=== PATIENT | male | born 1970 | race Hispanic/Latino ===

== ENCOUNTER 2018-12-05 11:03 | Inpatient (IN) | payer MEDICAID ==
[2018-12-05 11:13] VITALS: BMI 26.6
[2018-12-05] MEDS ORDERED: Morphine 4 MG/ML VIAL ONE (11:13)
--- NOTE | 2018-12-05 11:15 | C.PDOC ---
History Of Present Illness 48 year old male with a PMHx of hypertension, hypercholesterolemia, and s/p coronary stent placement 1 week ago at [facility] for evaluation of chest pain that began ~1 hour prior to ED arrival. EKG was received prior to patient's arrival and [facility] was called at 11:02 am. Per EMS patient complains of 9/10 chest pain, that began 15 minutes prior to their arrival. Upon arrival they found patient cool and diaphoretic, lying on the ground after shoveling dirt. Patient was given 325 mg aspirin and SL NTG x1 en route. Patient seen and immediately evaluated. Upon arrival he appears diaphoretic but is awake, alert, and answering questions. 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 Time Seen by Provider: 12/05/18 11:04 Chief Complaint (Nursing): Chest Pain History Per: Patient History/Exam Limitations: no limitations Onset/Duration Of Symptoms: Mins Current Symptoms Are (Timing): Still Present Severity: Severe Pain Scale Rating Of: 9 Associated Symptoms: Diaphoresis Nitro Therapy Administered: 1, Per EMS Past Medical History Reviewed: Historical Data, Nursing Documentation, Vital Signs - Medical History PMH: HTN, Hypercholesterolemia Surgical History: Coronary Stent (hx of 4-5, 1 placed at [facility] last week) Family History: States: Unknown Family Hx Review Of Systems Constitutional: Positive for: Sweats. Negative for: Fever Eyes: Negative for: Vision Change Cardiovascular: Positive for: Chest Pain Respiratory: Negative for: Cough, Shortness of Breath, Pleuritic Pain Gastrointestinal: Negative for: Nausea, Vomiting, Abdominal Pain, Diarrhea Musculoskeletal: Negative for: Back Pain Skin: Negative for: Rash Neurological: Negative for: Weakness, Numbness, Headache, Dizziness Physical Exam - Physical Exam Appears: Non-toxic, No Acute Distress Skin: Warm, Diaphoretic Head: Atraumatic, Normacephalic Eye(s): bilateral: Normal Inspection, PERRL, EOMI Oral Mucosa: Moist Neck: Trachea Midline, Supple Chest: Symmetrical, No Tenderness Cardiovascular: Rhythm Regular, No Friction Rub Respiratory: No Accessory Muscle Use, No Rales, No Rhonchi, No Wheezing, Other (+ mild SOB, no retractions, patient speaking in full sentences) Gastrointestinal/Abdominal: Soft, No Tenderness, No Distention Back: No CVA Tenderness, No Vertebral Tenderness Extremity: Bilateral: Atraumatic, Normal Color And Temperature Pulses: Left Dorsalis Pedis: Normal, Right Dorsalis Pedis: Normal Neurological/Psych: Oriented x3, Normal Speech, Normal Cognition ED Course And Treatment - Laboratory Results Result Diagrams: 12/05/18 11:19 12/05/18 11:19 ECG: Interpreted By Me ECG Rhythm: Sinus Rhythm Interpretation Of ECG: STEMI Rate From EC O2 Sat by Pulse Oximetry: 100 Pulse Ox Interpretation: Normal Medical Decision Making Medical Decision Making: Initial EKG from EMS: sinus rhythm at 67 bpm, ST elevations in leads 1 and avL, T wave depressions in leads 3 and avF Impression: STEMI ST-Elevation in the context of recent stent placement can sometimes be normal, however given clinical picture of chest pain, protecting airway but pale moderately diaphoretic will call [facility]. [facility] called at 11:02 11:04 Dr. Guzman, search consultant for [facility], called on patient's arrival with no answer. Orders placed for labs, CXR, EKG. 11:[address] Guzman twice but he is currently unavailable. Pt will require transfer to another facility with carpenter/labor for stent placement. 11:[address] Ulloa, who spoke with Dr. Guzman, he is en route and will take patient to the carpenter/labor here. 11:[address] Guzman, requests starting Heparin bolus and drip as well as giving patient Brilenta 180 mg. pt in NAD Patient admitted and taken to the carpenter/labor. Disposition - Disposition Disposition: HOSPITALIZED Disposition Time: 11:24 Condition: STABLE - POA Present On Arrival: None Core Measure Indicators: [facility] - Clinical Impression Clinical Impression: Chest pain - Scribe Statement The provider has reviewed the documentation as recorded by the Blaise Rosa Provider Attestation: All medical record entries made by the Larryibluis manuel were at my direction and personally dictated by me. I have reviewed the chart and agree that the record accurately reflects my personal performance of the history, physical exam, medical decision making, and the department course for this patient. I have also personally directed, reviewed, and agree with the discharge instructions and d isposition. Decision To Admit - Pt Status Changed To: Hospital Disposition Of: SDS- Endo,OR,Cath,IR - InPatient: Physician Admission Certification: I certify that this patient requires 2 or more midnights of care for the following reason:: cardiac catheterization, stent placement, STEMI - . Bed Request Type: ICU Admitting Physician: Kenneth Guzman Patient Diagnosis: Chest pain
[2018-12-05 11:23] LABS: BASO # 0.1 K/uL (0.0-0.2); BASO % 0.7 % (0.0-2.0); EOS # 0.2 K/uL (0.0-0.7); EOS % 1.8 % (0.0-4.0); HEMOGLOBIN 15.3 g/dL (12.0-18.0); LYMPH # 4.3 K/uL (1.0-4.3); MEAN CELL VOLUME 87.1 fL (80.0-94.0); MEAN CORPUSCULAR HEMOGLOBIN 28.9 pg (27.0-31.0); MEAN CORPUSCULAR HGB CONC 33.2 g/dL (33.0-37.0); MEAN PLATELET VOLUME 8.1 fL (7.2-11.7); MONO % 8.2 % (0.0-10.0); NEUT % 55.3 % (50.0-75.0); NRBC % 0.1 % (0.0-2.0); RBC 5.28 Mil/uL (4.40-5.90); RED CELL DISTRIBUTION WIDTH 14.3 % (11.5-14.5)
[2018-12-05] MEDS ORDERED: Heparin25000 units/250ml 1/2NS 25,000 UNITS/250 ML BAG IV PRN (11:24)
[2018-12-05 11:27] LABS: WHITE BLOOD COUNT 12.7 K/uL (4.8-10.8)
[2018-12-05 11:31] LABS: PROTHROMBIN TIME 11.1 SECONDS (9.7-12.2)
[2018-12-05 11:36] LABS: ALB/GLOB RATIO 1.8 (1.0-2.1); ALBUMIN 5.2 g/dL (3.5-5.0); ALT/SGPT 33 U/L (21-72); AST/SGOT 49 U/L (17-59); BLOOD UREA NITROGEN 18 mg/dL (9-20); GFR NON-AFRICAN AMERICAN 59
[2018-12-05] MEDS ORDERED: Iodixanol 320 MG/ML 200 ML BOTTLE IV ONE (11:41)
[2018-12-05] MEDS ORDERED: Iohexol 350mgl/ml 50 ML ONE (11:41)
[2018-12-05] MEDS ORDERED: Midazolam 2 MG/2 ML VIAL ONE (11:50)
[2018-12-05] MEDS ORDERED: Verapamil 0 ML ONE (11:50)
--- NOTE | 2018-12-05 12:08 | RAD ---
HISTORY: chest pain COMPARISON: None available. TECHNIQUE: Chest, one view. FINDINGS: LUNGS: Tiny bilateral nodular opacities, uncertain significance. No focal consolidation. Please note that chest x-ray has limited sensitivity for the detection of pulmonary masses. PLEURA: No significant pleural effusion identified. No definite pneumothorax . CARDIOVASCULAR: Heart size appears top normal. No significant atherosclerotic calcification present. OSSEOUS STRUCTURES: No acute osseous abnormality identified. VISUALIZED UPPER ABDOMEN: Unremarkable. OTHER FINDINGS: None. IMPRESSION: Tiny bilateral nodular opacities of uncertain significance. Recommend further evaluation CT of the chest.
[2018-12-05] MEDS ORDERED: Amiodarone 150mg/3 ml vial ONE (12:32)
--- NOTE | 2018-12-05 14:03 | CP.PCM.CON ---
<Mainor Grullon - Last Filed: 12/05/18 19:01> History of Present Illness - History of Present Illness History of Present Illness: ICU Consult Note for Dr. Tarango This is a 48 y o male with PMhx CAD with hx 5 prior stents placed (2012, 2013, most recent stent placed last week at [facility] in [facility] by [employer]aling Furnace Operator Dr. 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 Reported chest pain started at 10:45 am this morning, with associated shortness of breath and nausea, and called EMS to bring him to the hospital. [facility] was called. Pt was found to have ST depressions in leads III and avF and ST elevations in I and avL and was subsequently taken to the labor supervisor, where catheterization was performed by Dr. Guzman. Reason for ICU consult was for monitoring post-cath procedure. Cardiac cath demonstrated partial coronary dissection of RCA which was present prior as confirmed by Dr. Pichardo; diagonal artery was occluded as recent stent was placed and T stent was placed during procedure. Pt states he feels better compared to initial chest pain presentation, but reports dull achines in chest currently. Denies sob, n/v/d/c, abd pain, urinary complaints, or other symptoms. PMH: as stated above PSH: right arm surgery, 3 prior cardiac catheterizations, 1 last week, 1 in 2015, and 1 in 2012 with stents placed in each catheterization FMHx: Uncle at 47 from cardiac cause, grandfather from cardiac cause at unknown age SHx: denies smoking and alcohol use Allergies: NKDA Primary Annealing Furnace Operator: Dr. Harry Pichardo PMD: Dr. Delgado Review of Systems - Review of Systems All systems: reviewed and no additional remarkable complaints except - Cardiovascular Cardiovascular: Chest Pain, Dyspnea on Exertion - Respiratory Respiratory: absent: Cough, Dyspnea, Dyspnea on Exertion, Wheezing - Gastrointestinal Gastrointestinal: absent: Abdominal Pain, Constipation, Diarrhea, Nausea, Vomiting Past Patient History - Past Social History Smoking Status: Never Smoked - CARDIAC Hx Hypercholesterolemia: Yes Hx Hypertension: Yes - PSYCHIATRIC Hx Substance Use: No - SURGICAL HISTORY Hx Coronary Stent: Yes (hx of 4-5, 1 placed at [facility] last week) Meds Allergies/Adverse Reactions: Allergies Allergy/AdvReac Type Severity Reaction Status Date / Time No Known Allergies Allergy Verified 12/05/18 11:14 - Medications Medications: Current Medications Heparin Sodium/Sodium Chloride (Heparin 00958 Units/250ml 1/2 Normal Saline) 25,000 units in 250 mls @ 9.253 mls/hr IV .Q24H PRN; Protocol PRN Reason: PROTOCOL Last Admin: 12/05/18 11:24 Dose: 12 units/kg/hr, 9.253 mls/hr Physical Exam - Constitutional Appears: Non-toxic, No Acute Distress - Head Exam Head Exam: ATRAUMATIC, NORMAL INSPECTION - Eye Exam Eye Exam: EOMI, Normal appearance, PERRL - ENT Exam ENT Exam: Mucous Membranes Moist - Respiratory Exam Respiratory Exam: Clear to Auscultation Bilateral, NORMAL BREATHING PATTERN. absent: Rales, Rhonchi, Wheezes - Cardiovascular Exam Cardiovascular Exam: REGULAR RHYTHM, +S1, +S2. absent: Gallop, Rubs, Systolic Murmur - GI/Abdominal Exam GI & Abdominal Exam: Normal Bowel Sounds, Soft. absent: Distended, Organomegaly, Tenderness - Extremities Exam Extremities exam: Positive for: full ROM, normal capillary refill, normal inspection, pedal pulses present - Neurological Exam Neurological exam: Alert, CN II-XII Intact, Oriented x3 - Psychiatric Exam Psychiatric exam: Normal Affect, Normal Mood - Skin Skin Exam: Dry, Intact, Warm Additional comments: Site of catheter insertion in R groin c/d/i Results - Vital Signs Recent Vital Signs: Last Vital Signs Temp 97.8 F 12/05/18 11:08 Pulse 89 12/05/18 11:08 Resp 26 H 12/05/18 11:08 BP 151/92 H 12/05/18 11:08 Pulse Ox 100 12/05/18 11:58 - Labs Result Diagrams: 12/05/18 17:33 12/05/18 17:33 Labs: Laboratory Results - last 24 hr 12/05/18 12/05/18 12/05/18 11:16 11:19 11:19 WBC 12.7 H RBC 5.28 Hgb 15.3 Hct 46.0 MCV 87.1 MCH 28.9 MCHC 33.2 RDW 14.3 Plt Count 485 H MPV 8.1 Neut % (Auto) 55.3 Lymph % (Auto) 34.0 [place] % (Auto) 8.2 Eos % (Auto) 1.8 Baso % (Auto) 0.7 Neut # (Auto) 7.0 Lymph # (Auto) 4.3 [place] # (Auto) 1.0 H Eos # (Auto) 0.2 Baso # (Auto) 0.1 PT 11.1 INR 1.0 APTT 32 Sodium Potassium Chloride Carbon Dioxide Anion Gap BUN Creatinine Est GFR ( Amer) Est GFR (Non-Af Amer) POC Glucose (mg/dL) 118 H Random Glucose Calcium Total Bilirubin AST ALT Alkaline Phosphatase Troponin I Total Protein Albumin Globulin Albumin/Globulin Ratio Blood Type Antibody Screen 12/05/18 12/05/18 12/05/18 11:19 11:19 11:20 WBC RBC Hgb Hct MCV MCH MCHC RDW Plt Count MPV Neut % (Auto) Lymph % (Auto) [place] % (Auto) Eos % (Auto) Baso % (Auto) Neut # (Auto) Lymph # (Auto) [place] # (Auto) Eos # (Auto) Baso # (Auto) PT INR APTT Sodium 139 Potassium 3.7 Chloride 100 Carbon Dioxide 26 Anion Gap 17 BUN 18 Creatinine 1.3 Est GFR ( Amer) > 60 Est GFR (Non-Af Amer) 59 POC Glucose (mg/dL) Random Glucose 116 H Calcium 10.0 Total Bilirubin 0.4 AST 49 ALT 33 Alkaline Phosphatase 128 H Troponin I 0.0250 Total Protein 8.1 Albumin 5.2 H Globulin 3.0 Albumin/Globulin Ratio 1.8 Blood Type O POSITIVE Antibody Screen Negative Assessment & Plan - Assessment and Plan (Free Text) Assessment: This is a 48 y o male with PMhx CAD with hx 5 prior stents placed (2012, 2013, most recent stent placed last week at [facility] in [facility] by Ca rdiologist Dr. 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 Reason for ICU consult was for monitoring post-cath procedure. Plan: Neuro: -AAOx3, no gross deficits on exam -Will cont to monitor Cardio: -S/p [facility] -EKG: ST depressions in III and aVF and ST elevations in I and aVL -S/p Cardiac catheterization by Dr. Guzman, showed partial coronary dissection of RCA which was present prior as confirmed by Dr. Pichardo; diagonal artery was occluded as recent stent was placed and T stent was placed -Cardiology consulted, Dr. Guzman, recs appreciated -S/p heparin drip -C/w Briilinta -Started beta-elvis, statin therapy, ASA -Pt had episode of v-tach and associated palpitations in unit for several seconds which resolved on own without intervention, stat EKG done demonstrated no acute changes, trop elevated to 70 from admission, cont to trend ROMIs -Amiodarone drip started Pulm: -CXR demonstrated b/l nodular opacities of unknown significance, recommend CT chest -Saturating well on NC, cont to monitor GI: -HHD -Protonix -No acute issues at this time, cont to monitor -C/w IVF hydration post-procedure Heme: -H/H 13.8/42.7, stable, cont to monitor -Leukocytosis on admission, may be reactive 2/2 STEMI, cont to trend -Afebrile PPX: -Heparin, Protonix Pt seen, examined with, and plan discussed with Dr. Tarango, attending physician. Mainor Grullon DO PGY-1, Senior Mechanical Designer Pager #[phone] <Brendan Tarango - Last Filed: 12/11/18 23:10> Results - Vital Signs Recent Vital Signs: Last Vital Signs Temp 97.7 F 12/10/18 16:00 Pulse 73 12/10/18 17:30 Resp 18 12/10/18 16:00 BP 94/59 L 12/10/18 16:00 Pulse Ox 97 12/10/18 16:00 - Labs Result Diagrams: 12/10/18 07:26 12/10/18 07:26 Attending/Attestation - Attestation I have personally seen and examined this patient.: Yes I have fully participated in the care of the patient.: Yes I have reviewed all pertinent clinical information: Yes Notes (Text): 12/05/18 Today: Monday, December 05, 2018 The Patient was seen and examined at the bedside, Medical records reviewed, and management issues were discussed and formulated with the house staff. I have reviewed all the relevant clinical, laboratory, hemodynamic, radiographic data and medications Events reviewed Pain issues, skin care, head of the bed elevation, glycemic control were addressed. Agree with above resident's assessment and treatment plans of care as transcribed in Dr. Grullon's note.
[2018-12-05] MEDS: Sodium Chloride 0.9% 1,000 ML IV SCH (16:00)
[2018-12-05] MEDS: Pantoprazole 40 mg EC Tab PO SCH (16:28)
--- NOTE | 2018-12-05 16:50 | CP.PCM.CON ---
History of Present Illness - History of Present Illness History of Present Illness: Ailyn Verde, PGY-1, Cardiology Consult Note for Dr. Guzman 48 year old male with past medical history of CAD with 3 prior heart cath eterizations last week, 3 years ago, and 6 years ago presents with sharp chest pain which gradually increased after patient was shoveling dirt today for 5 minutes. Patient reported chest pain starting around 10:45 AM, shortness of breath and nausea was brought to the hospital by EMS. EKG was read at 11:02 and code heart was called. Patient was found to have ST depressions in III and aVF and ST elevations in I and aVL and was subsequently taken to the laborer stores where cardiac catheterization was performed by Dr. Guzman. Patient denied diaphoresis, jaw pain, or left arm pain. Patient's pain was similar to prior episodes of myocardial infarction. PMH: as stated above PSH: right arm surgery, 3 prior cardiac catheterizations, 1 last week, 1 in 2015, and 1 in 2012 with stents placed in each catheterization FMHx: Uncle at 47 from cardiac cause, grandfather from cardiac cause at unknown age SHx: denies smoking and alcohol use Allergies: NKDA Evaporator Supervisor: Dr. Harry Pichardo Review of Systems - Review of Systems Review of Systems: except as stated in HPI Past Patient History - Past Medical History & Family History Past Medical History?: Yes - Past Social History Smoking Status: Never Smoked - CARDIAC Hx Heart Attack: Yes Hx Hypercholesterolemia: Yes Hx Hypertension: Yes - PULMONARY Hx Respiratory Disorders: No - NEUROLOGICAL Hx Neurological Disorder: No - HEENT Hx HEENT Problems: No - RENAL Hx Chronic Kidney Disease: No - ENDOCRINE/METABOLIC Hx Endocrine Disorders: No - INTEGUMENTARY Hx Dermatological Problems: No - MUSCULOSKELETAL/RHEUMATOLOGICAL Hx Musculoskeletal Disorders: No Hx Falls: No - GASTROINTESTINAL Hx Gastrointestinal Disorders: No - GENITOURINARY/GYNECOLOGICAL Hx Genitourinary Disorders: No - PSYCHIATRIC Hx Psychophysiologic Disorder: No Hx Substance Use: No - SURGICAL HISTORY Hx Surgeries: Yes Hx Coronary Stent: Yes (hx of 4-5, 1 placed at [facility] last week) - ANESTHESIA Hx Anesthesia: Yes Hx Anesthesia Reactions: No Meds Allergies/Adverse Reactions: Allergies Allergy/AdvReac Type Severity Reaction Status Date / Time No Known Allergies Allergy Verified 12/05/18 11:14 - Medications Medications: Current Medications Aspirin (Aspirin Chewable) 81 mg PO DAILY REPLACED BY [facility] Heparin Sodium (Porcine) (Heparin) 5,000 units SC Q8 REPLACED BY [facility] Sodium Chloride (Sodium Chloride 0.9%) 1,000 mls @ 100 mls/hr IV .Q10H REPLACED BY [facility] Last Admin: 12/05/18 16:00 Dose: 100 mls/hr Metoprolol Tartrate (Lopressor) 25 mg PO DAILY REPLACED BY [facility] Last Admin: 12/05/18 16:27 Dose: 25 mg Pantoprazole Sodium (Protonix Ec Tab) 40 mg PO DAILY REPLACED BY [facility] Last Admin: 12/05/18 16:28 Dose: 40 mg Rosuvastatin Calcium (Crestor) 20 mg PO HS REPLACED BY [facility] Ticagrelor (Brilinta) 90 mg PO BID REPLACED BY [facility] Physical Exam - Constitutional Appears: Well, Non-toxic, No Acute Distress - Head Exam Head Exam: ATRAUMATIC, NORMAL INSPECTION, NORMOCEPHALIC - Eye Exam Eye Exam: EOMI, PERRL - ENT Exam ENT Exam: Mucous Membranes Moist - Respiratory Exam Respiratory Exam: Clear to Auscultation Bilateral, NORMAL BREATHING PATTERN - Cardiovascular Exam Cardiovascular Exam: Tachycardia, REGULAR RHYTHM - GI/Abdominal Exam GI & Abdominal Exam: Normal Bowel Sounds, Soft. absent: Tenderness - Extremities Exam Extremities exam: Positive for: full ROM - Neurological Exam Neurological exam: Alert, CN II-XII Intact, Oriented x3 - Psychiatric Exam Psychiatric exam: Anxious - Skin Skin Exam: Dry, Intact, Normal Color Results - Vital Signs Recent Vital Signs: Last Vital Signs Temp 97.8 F 12/05/18 11:08 Pulse 68 12/05/18 15:30 Resp 11 L 12/05/18 15:30 BP 126/79 12/05/18 16:27 Pulse Ox 99 12/05/18 15:30 - Labs Result Diagrams: 12/05/18 11:19 12/05/18 11:19 Labs: Laboratory Results - last 24 hr 12/05/18 12/05/18 12/05/18 11:16 11:19 11:19 WBC 12.7 H RBC 5.28 Hgb 15.3 Hct 46.0 MCV 87.1 MCH 28.9 MCHC 33.2 RDW 14.3 Plt Count 485 H MPV 8.1 Neut % (Auto) 55.3 Lymph % (Auto) 34.0 [place] % (Auto) 8.2 Eos % (Auto) 1.8 Baso % (Auto) 0.7 Neut # (Auto) 7.0 Lymph # (Auto) 4.3 [place] # (Auto) 1.0 H Eos # (Auto) 0.2 Baso # (Auto) 0.1 PT 11.1 INR 1.0 APTT 32 Sodium Potassium Chloride Carbon Dioxide Anion Gap BUN Creatinine Est GFR ( Amer) Est GFR (Non-Af Amer) POC Glucose (mg/dL) 118 H Random Glucose Calcium Total Bilirubin AST ALT Alkaline Phosphatase Troponin I Total Protein Albumin Globulin Albumin/Globulin Ratio Blood Type Antibody Screen 12/05/18 12/05/18 12/05/18 11:19 11:19 11:20 WBC RBC Hgb Hct MCV MCH MCHC RDW Plt Count MPV Neut % (Auto) Lymph % (Auto) [place] % (Auto) Eos % (Auto) Baso % (Auto) Neut # (Auto) Lymph # (Auto) [place] # (Auto) Eos # (Auto) Baso # (Auto) PT INR APTT Sodium 139 Potassium 3.7 Chloride 100 Carbon Dioxide 26 Anion Gap 17 BUN 18 Creatinine 1.3 Est GFR ( Amer) > 60 Est GFR (Non-Af Amer) 59 POC Glucose (mg/dL) Random Glucose 116 H Calcium 10.0 Total Bilirubin 0.4 AST 49 ALT 33 Alkaline Phosphatase 128 H Troponin I 0.0250 Total Protein 8.1 Albumin 5.2 H Globulin 3.0 Albumin/Globulin Ratio 1.8 Blood Type O POSITIVE Antibody Screen Negative Assessment & Plan - Assessment and Plan (Free Text) Assessment: CAD Family history of DE Plan: CAD Family history of DE Cardiac catheterization showed partial coronary dissection of RCA which was present prior as confirmed by Dr. Pichardo; diagonal artery was occluded as recent stent was placed and T stent was placed Medications: aspirin brilinta rosuvastatin lopressor - Date & Time Date: 12/05/18 Time: 16:51
[2018-12-05 17:36] LABS: BASO # 0.1 K/uL (0.0-0.2); BASO % 0.6 % (0.0-2.0); EOS % 0.1 % (0.0-4.0); HEMOGLOBIN 13.8 g/dL (12.0-18.0); LYMPH # 2.2 K/uL (1.0-4.3); MEAN CELL VOLUME 86.3 fL (80.0-94.0); MEAN CORPUSCULAR HEMOGLOBIN 27.8 pg (27.0-31.0); MEAN CORPUSCULAR HGB CONC 32.2 g/dL (33.0-37.0); MEAN PLATELET VOLUME 7.8 fL (7.2-11.7); MONO # 1.1 K/uL (0.0-0.8); MONO % 6.8 % (0.0-10.0); NEUT # 13.3 K/uL (1.8-7.0); NEUT % 79.5 % (50.0-75.0); NRBC % 0.1 % (0.0-2.0); RBC 4.95 Mil/uL (4.40-5.90); WHITE BLOOD COUNT 16.7 K/uL (4.8-10.8)
[2018-12-05 17:51] LABS: ALB/GLOB RATIO 1.7 (1.0-2.1); ALBUMIN 4.6 g/dL (3.5-5.0); ALT/SGPT 58 U/L (21-72); AST/SGOT 268 U/L (17-59); BLOOD UREA NITROGEN 13 mg/dL (9-20); CALCIUM 9.2 mg/dl (8.6-10.4); GFR NON-AFRICAN AMERICAN > 60
--- NOTE | 2018-12-05 19:28 | CARD ---
APPROVED REPORT Date of service: 12/05/2018 EKG Measurement Heart [id number] [id number] <Conclusion> Normal sinus rhythm Low voltage QRS Cannot rule out Anteroseptal infarct, age undetermined Lateral injury pattern ACUTE MT / STEMI Abnormal ECG
[2018-12-05 21:12] LABS: ALB/GLOB RATIO 1.7 (1.0-2.1); ALBUMIN 4.9 g/dL (3.5-5.0); BLOOD UREA NITROGEN 13 mg/dL (9-20); CALCIUM 9.4 mg/dl (8.6-10.4); GFR NON-AFRICAN AMERICAN > 60
[2018-12-05 21:15] LABS: ALT/SGPT 60 U/L (21-72); AST/SGOT 313 U/L (17-59)
[2018-12-05 22:55] LABS: BARBITURATES, UR NEGATIVE (NEGATIVE); PHENCYCLIDINE, UR NEGATIVE (NEGATIVE)
[2018-12-05 22:57] LABS: BENZODIAZEPINES, UR POSITIVE (NEGATIVE); OPIATES, UR POSITIVE (NEGATIVE)
[2018-12-06] MEDS: Sodium Chloride 0.9% 1,000 ML IV SCH (01:25)
[2018-12-06 02:04] LABS: CK-MB 75.4 ng/mL (0.0-3.38); TROPONIN I 43.1 ng/mL (0.00-0.120)
--- NOTE | 2018-12-06 02:10 | CARDCATH ---
PROCEDURE DATE: 12/05/2018 INDICATIONS: Mr. Abdirashid Carter is a 48-year-old male with past medical history significant for CAD, status post multiple angioplasties and stenting, who recently had undergone a balloon angioplasty of the diagonal in-stent restenosis done on 11/26/[address] Harry Pichardo who is his primary hospital medical assistant. The patient was at work who was shoveling some gravel dirt when he started to complain of substernal chest pressure. EMS was called and the patient was brought to the emergency room at [facility]. Initial EKG noted ST elevations in the high lateral leads. He was brought to the laboratory cureman for evaluation and treatment of acute ST elevation LA. PROCEDURE PERFORMED: Emergent left heart catheterization with selective left and right coronary angiogram, left ventriculogram, 6-Taiwanese right femoral arterial access, percutaneous transluminal coronary angioplasty and stenting of 100% occluded diagonal branch, deployment of 2.25 x 15 mm Mesa drug-eluting stent, lesion reduction from 100% down to 0% KENDAL-3 flow, percutaneous transluminal coronary angioplasty and stenting of mid left anterior descending 50% stenosis. deployment of 3.0 x 18 Mesa drug-eluting stent, lesion reduction from 50% down to 0% KENDAL-3 flow, left anterior descending stenting and diagonal stent was done for modified crush T-stenting technique for patency of the left anterior descending and diagonal. TECHNIQUES OF PROCEDURE: After obtaining informed consent, the patient was brought to the cardiac cath suite in post-absorptive and non-sedated state. The patient was prepped and draped in the usual sterile fashion; 2% lidocaine was used for infiltration of anesthesia. Using modified Seldinger technique, a 6-Taiwanese sheath was introduced into the right femoral artery, subsequently over J-wire. JR4 and XB 3.5 guiding catheter were used in the right and left coronary systems. Angiograms were obtained in different orthogonal views. RCA is small, nondominant, occluded with patent conus branch. Distal RCA had some collateral flow feeding from the distal circ. LEFT CORONARY SYSTEM: The left main large-sized vessel bifurcates into the left anterior descending and left circumflex coronary artery. Left circumflex runs in the AV groove, has stents in the mid segment which are patent, gives off two small obtuse marginal branches. LPDA is patent with mild nonobstructive disease, a small obtuse marginal 1 less than 1 mm vessel has approximately 80% stenosis. Left anterior descending is a large-sized vessel, gives off diagonal branch which has a stent in the proximal segment which is 100% occluded. LAD has a mid stent which is patent with nonobstructive 80% stenosis. TECHNIQUES OF INTERVENTION: After reviewing the above angiographic findings, we decided to proceed with intervention of the diagonal. Case was reviewed by Dr. Pichardo who described angiogram. At this point, a whisper wire was used to cross the lesion. Lesion was pre-dilated with a 1.5 x 2 balloon, and subsequently the ostium of the diagonal which was the uncovered part of the stent had an interval tear which potentially could have caused the stent thrombosis at this point. A 2.25 x 18 stent was deployed extending into the LAD. Subsequently, the LAD was ballooned to crush the stent in the diagonal at this time. The LAD vessel was stented with 3 x 18 and the wires were exchanged from the LAD into the diagonal and diagonal into the LAD and subsequently kissing balloon angioplasties of both LAD and diagonal were done. Final angiogram done showed regeneration down to 0% KENDAL 3 flow. IMPRESSION: Successful angioplasty and stenting of occluded diagonal branch. Successful T-stenting for preservation of the left anterior descending architecture with modified crush technique with a 3 x 18 in LAD and a 2.25 x 18 in the diagonal. RECOMMENDATIONS: Continue the patient with antiplatelet therapy. ICU observation for 24 hours. Echocardiogram. The patient can be discharged home tomorrow and follow up with his hospital medical assistant Dr. Harry Pichardo. Kennteh Guzman MD cc: Harry Pichardo MD
[2018-12-06 06:29] LABS: BASO % 0.2 % (0.0-2.0); HEMOGLOBIN 14.2 g/dL (12.0-18.0); LYMPH # 0.7 K/uL (1.0-4.3); LYMPH % 3.9 % (20.0-40.0); MEAN CELL VOLUME 86.8 fL (80.0-94.0); MEAN CORPUSCULAR HEMOGLOBIN 28.4 pg (27.0-31.0); MEAN CORPUSCULAR HGB CONC 32.7 g/dL (33.0-37.0); MEAN PLATELET VOLUME 8.6 fL (7.2-11.7); MONO # 0.9 K/uL (0.0-0.8); NEUT # 15.6 K/uL (1.8-7.0); NEUT % 90.9 % (50.0-75.0); PLATELET COUNT 392 K/uL (130-400); RBC 4.99 Mil/uL (4.40-5.90); RED CELL DISTRIBUTION WIDTH 14.3 % (11.5-14.5); WHITE BLOOD COUNT 17.2 K/uL (4.8-10.8)
[2018-12-06 06:46] LABS: ALB/GLOB RATIO 1.8 (1.0-2.1); ALBUMIN 4.6 g/dL (3.5-5.0); ALT/SGPT 51 U/L (21-72); AST/SGOT 241 U/L (17-59); BLOOD UREA NITROGEN 12 mg/dL (9-20); CALCIUM 9.1 mg/dl (8.6-10.4); GFR NON-AFRICAN AMERICAN > 60
[2018-12-06 08:11] LABS: LYMPHOCYTE 4 % (20-40); MONOCYTE 9 % (0-10); NEUTROPHIL 87 % (50-75); TOTAL CELLS COUNTED 100
[2018-12-06 08:12] LABS: PLATELET ESTIMATE NORMAL (NORMAL)
--- NOTE | 2018-12-06 08:37 | CP.PCM.PN ---
Subjective - Date & Time of Evaluation Date of Evaluation: 12/06/18 Time of Evaluation: 08:35 - Subjective Subjective: Ailyn Verde, PGY-1, Cardiology Progress Note for Dr. Guzman Patient was seen and evaluated at bedside. Patient had no acute overnight events except for nausea. Patient no longer feels nausea, reports that chest pain and shortness of breath have now resolved. Objective - Vital Signs/Intake and Output Vital Signs (last 24 hours): Temp Pulse Resp BP Pulse Ox 98.6 F 86 14 99/64 L 96 12/06/18 08:00 12/06/18 08:00 12/06/18 08:00 12/06/18 07:28 12/06/18 08:00 Intake and Output: 12/06/18 12/06/18 06:59 18:59 Intake Total 1783.4 233.4 Output Total 850 0 Balance 933.4 233.4 - Medications Medications: Current Medications Aspirin (Aspirin Chewable) 81 mg PO DAILY [facility] Heparin Sodium (Porcine) (Heparin) 5,000 units SC Q8 [facility] Last Admin: 12/06/18 05:54 Dose: 5,000 units Sodium Chloride (Sodium Chloride 0.9%) 1,000 mls @ 100 mls/hr IV .Q10H [facility] Last Admin: 12/06/18 01:25 Dose: 100 mls/hr Amiodarone HCl 900 mg/ (Dextrose) 500 mls @ 16.67 mls/hr IV .Q24H [facility]; Protocol Stop: 12/06/18 23:44 Last Admin: 12/05/18 23:46 Dose: 16.67 mls/hr Metoprolol Tartrate (Lopressor) 25 mg PO DAILY [facility] Last Admin: 12/05/18 16:27 Dose: 25 mg Ondansetron HCl (Zofran Inj) 4 mg IVP Q6H PRN PRN Reason: Nausea/Vomiting Pantoprazole Sodium (Protonix Ec Tab) 40 mg PO DAILY [facility] Last Admin: 12/05/18 16:28 Dose: 40 mg Rosuvastatin Calcium (Crestor) 20 mg PO HS [facility] Last Admin: 12/05/18 21:51 Dose: 20 mg Ticagrelor (Brilinta) 90 mg PO BID [facility] Last Admin: 12/05/18 18:00 Dose: Not Given - Labs Labs: 12/06/18 06:19 12/06/18 06:19 PT 11.1 SECONDS (9.7-12.2) 12/05/18 11:19 INR 1.0 12/05/18 11:19 APTT 32 SECONDS (21-34) 12/05/18 11:19 - Constitutional Appears: Well, Non-toxic, No Acute Distress - Head Exam Head Exam: ATRAUMATIC, NORMAL INSPECTION, NORMOCEPHALIC - Eye Exam Eye Exam: EOMI, PERRL - ENT Exam ENT Exam: Mucous Membranes Moist - Respiratory Exam Respiratory Exam: Clear to Ausculation Bilateral, NORMAL BREATHING PATTERN - Cardiovascular Exam Cardiovascular Exam: REGULAR RHYTHM, RRR, +S1, +S2 - GI/Abdominal Exam GI & Abdominal Exam: Soft, Normal Bowel Sounds. absent: Tenderness - Extremities Exam Extremities Exam: Full ROM. 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 Pichardo; diagonal artery was occluded as recent stent was placed and T stent was placed Echocardiogram ordered for further evaluation. Limited echocardiogram was performed during catheterization. Troponin value repeated Will consider ARB once blood pressure improves Increased lopressor to 50 mg Q12 Medications: aspirin brilinta rosuvastatin lopressor zetia omega 3 fatty acids
[2018-12-06 09:30] LABS: CK-MB 46.9 ng/mL (0.0-3.38); TROPONIN I 29.7 ng/mL (0.00-0.120)
[2018-12-06] MEDS: Pantoprazole 40 mg EC Tab PO SCH (09:36)
--- NOTE | 2018-12-06 09:38 | CP.CCUPN ---
CCU Subjective - Physician Review Subjective (Free Text): 12/06/18 14:18 ICU Progress Note for Dr. Romero Pt seen and examined at bedside this am. Denies any acute complaints, states chest pain and n/v has resolved. No acute events reported overnight by staff, was on amiodarone drip in am after episode of chest pain and v-tach while in ICU post-cardiac cath. 12-point ROS obtained, otherwise neg as per pt. CCU Objective - Vital Signs / Intake & Output Vital Signs (Last 4 hours): Vital Signs Temp Pulse Resp BP Pulse Ox 12/06/18 09:36 108/74 12/06/18 08:00 98.6 F 86 14 96 12/06/18 07:28 91 H 18 99/64 L 96 12/06/18 07:00 85 19 96 Intake and Output (Last 8hrs): Intake & Output 12/05/18 12/06/18 12/06/18 22:59 06:59 14:59 Intake Total 1788.5 1050.2 600.1 Output Total 951 550 0 Balance 837.5 500.2 600.1 Weight 169 lb 12.095 oz Intake: Intake, IV Amount 1108.5 950.2 350.1 Right Antecubital 266.5 150.2 50.1 Right Forearm 842 800 300 Oral 680 100 250 Output: Urine 850 550 Urine, Voided 850 550 Emesis 100 0 0 Oral Regurgitation 1 Other: # Voids Urine, Voided 1 1 0 # Bowel Movements 0 0 0 - Physical Exam Head: Positive for: Atraumatic, Normocephalic Pupils: Positive for: PERRL Extroacular Muscles: Positive for: EOMI Conjunctiva: Positive for: Normal Mouth: Positive for: Moist Mucous Membranes Neck: Positive for: Normal Range of Motion. Negative for: JVD, Lymphadenopathy Respiratory/Chest: Positive for: Clear to Auscultation, Good Air Exchange. Negative for: Respiratory Distress, Accessory Muscle Use, Wheezes, Rales, Rhonchi Cardiovascular: Positive for: Regular Rate and Rhythm, Normal S1, S2. Negative for: Murmurs, Rub, Gallop Abdomen: Positive for: Normal Bowel Sounds. Negative for: Tenderness, Distention, Mass/Organomegaly Upper Extremity: Positive for: Normal Inspection, Normal ROM, NORMAL PULSES, Ne urovascularly Intact, Capillary Refill < 2s. Negative for: Cyanosis, Edema Lower Extremity: Positive for: Normal Inspection, NORMAL PULSES, Normal ROM, Neurovascularly Intact, Capillary Refill < 2 s. Negative for: Edema Neurological: Positive for: GCS=15, CN II-XII Intact, Speech Normal Skin: Positive for: Warm, Dry, Normal Color Psychiatric: Positive for: Alert, Oriented x 3 - Medications Active Medications: Active Medications Generic Name Dose Route Start Last Admin Trade Name Freq PRN Reason Stop Dose Admin Aspirin 81 mg 12/06/18 10:00 12/06/18 09:36 Aspirin Chewable PO 81 mg DAILY RIVERA Administration Heparin Sodium (Porcine) 5,000 units 12/06/18 06:00 12/06/18 05:54 Heparin SC 5,000 units Q8 RIVERA Administration Sodium Chloride 1,000 mls @ 100 mls/hr 12/05/18 15:00 12/06/18 01:25 Sodium Chloride 0.9% IV 100 mls/hr .Q10H RIVERA Administration Amiodarone HCl 900 mg/ 500 mls @ 16.67 mls/hr 12/05/18 23:45 12/05/18 23:46 Dextrose IV 12/06/18 23:44 16.67 mls/hr .Q24H ONE Administration Protocol 0.5 MG/MIN Metoprolol Tartrate 25 mg 12/05/18 16:00 12/06/18 09:36 Lopressor PO 25 mg DAILY RIVERA Administration Ondansetron HCl 4 mg 12/05/18 17:23 Zofran Inj IVP Q6H PRN Nausea/Vomiting Pantoprazole Sodium 40 mg 12/05/18 16:00 12/06/18 09:36 Protonix Ec Tab PO 40 mg DAILY RIVERA Administration Rosuvastatin Calcium 20 mg 12/05/18 22:00 12/05/18 21:51 Crestor PO 20 mg HS RIVERA Administration Ticagrelor 90 mg 12/05/18 18:00 12/06/18 09:36 Brilinta PO 90 mg BID RIVERA Administration - Patient Studies Lab Studies: Lab Studies 12/06/18 12/06/18 12/06/18 Range/Units 08:35 06:19 06:19 WBC 17.2 H (4.8-10.8) K/uL RBC 4.99 (4.40-5.90) Mil/uL Hgb 14.2 (12.0-18.0) g/dL Hct 43.3 (35.0-51.0) % MCV 86.8 (80.0-94.0) fL MCH 28.4 (27.0-31.0) pg MCHC 32.7 L (33.0-37.0) g/dL RDW 14.3 (11.5-14.5) % Plt Count 392 (130-400) K/uL MPV 8.6 (7.2-11.7) fL Neut % (Auto) 90.9 H (50.0-75.0) % Lymph % (Auto) 3.9 L (20.0-40.0) % [place] % (Auto) 5.0 (0.0-10.0) % Eos % (Auto) 0.0 (0.0-4.0) % Baso % (Auto) 0.2 (0.0-2.0) % Neut # (Auto) 15.6 H (1.8-7.0) K/uL Lymph # (Auto) 0.7 L (1.0-4.3) K/uL [place] # (Auto) 0.9 H (0.0-0.8) K/uL Eos # (Auto) 0.0 (0.0-0.7) K/uL Baso # (Auto) 0.0 (0.0-0.2) K/uL Neutrophils % (Manual) 87 H (50-75) % Lymphocytes % (Manual) 4 L (20-40) % Monocytes % (Manual) 9 (0-10) % Platelet Estimate Normal (NORMAL) RBC Morphology Normal PT (9.7-12.2) SECONDS INR APTT (21-34) SECONDS Sodium 136 (132-148) mmol/L Potassium 3.8 (3.6-5.2) mmol/L Chloride 99 (98-107) mmol/L Carbon Dioxide 26 (22-30) mmol/L Anion Gap 15 (10-20) BUN 12 (9-20) mg/dL Creatinine 0.8 (0.8-1.5) mg/dL Est GFR ( Amer) > 60 Est GFR (Non-Af Amer) > 60 POC Glucose (mg/dL) (65-110) mg/dL Random Glucose 156 H (75-110) mg/dL Calcium 9.1 (8.6-10.4) mg/dl Phosphorus 2.4 L (2.5-4.5) mg/dL Magnesium 1.9 (1.6-2.3) mg/dL Total Bilirubin 0.5 (0.2-1.3) mg/dL AST 241 H D (17-59) U/L ALT 51 (21-72) U/L Alkaline Phosphatase 80 (38-126) U/L Total Creatine Kinase 953 H (55-170) U/L CK-MB (Mass) 46.9 H (0.0-3.38) ng/mL Troponin I 29.7000 H* (0.00-0.120) ng/mL Total Protein 7.2 (6.3-8.3) g/dL Albumin 4.6 (3.5-5.0) g/dL Globulin 2.6 (2.2-3.9) gm/dL Albumin/Globulin Ratio 1.8 (1.0-2.1) Urine Opiates Screen (NEGATIVE) Urine Methadone Screen (NEGATIVE) Ur Barbiturates Screen (NEGATIVE) Ur Phencyclidine Scrn (NEGATIVE) Ur Amphetamines Screen (NEGATIVE) U Benzodiazepines Scrn (NEGATIVE) U Oth Cocaine Metabols (NEGATIVE) U Cannabinoids Screen (NEGATIVE) Blood Type Antibody Screen 12/06/18 12/05/18 12/05/18 Range/Units 00:57 22:13 20:48 WBC (4.8-10.8) K/uL RBC (4.40-5.90) Mil/uL Hgb (12.0-18.0) g/dL Hct (35.0-51.0) % MCV (80.0-94.0) fL MCH (27.0-31.0) pg MCHC (33.0-37.0) g/dL RDW (11.5-14.5) % Plt Count (130-400) K/uL MPV (7.2-11.7) fL Neut % (Auto) (50.0-75.0) % Lymph % (Auto) (20.0-40.0) % [place] % (Auto) (0.0-10.0) % Eos % (Auto) (0.0-4.0) % Baso % (Auto) (0.0-2.0) % Neut # (Auto) (1.8-7.0) K/uL Lymph # (Auto) (1.0-4.3) K/uL [place] # (Auto) (0.0-0.8) K/uL Eos # (Auto) (0.0-0.7) K/uL Baso # (Auto) (0.0-0.2) K/uL Neutrophils % (Manual) (50-75) % Lymphocytes % (Manual) (20-40) % Monocytes % (Manual) (0-10) % Platelet Estimate (NORMAL) RBC Morphology PT (9.7-12.2) SECONDS INR APTT (21-34) SECONDS Sodium 139 (132-148) mmol/L Potassium 4.1 (3.6-5.2) mmol/L Chloride 102 (98-107) mmol/L Carbon Dioxide 25 (22-30) mmol/L Anion Gap 17 (10-20) BUN 13 (9-20) mg/dL Creatinine 0.9 (0.8-1.5) mg/dL Est GFR ( Amer) > 60 Est GFR (Non-Af Amer) > 60 POC Glucose (mg/dL) (65-110) mg/dL Random Glucose 147 H (75-110) mg/dL Calcium 9.4 (8.6-10.4) mg/dl Phosphorus (2.5-4.5) mg/dL Magnesium (1.6-2.3) mg/dL Total Bilirubin 0.8 (0.2-1.3) mg/dL AST 313 H (17-59) U/L ALT 60 (21-72) U/L Alkaline Phosphatase 98 (38-126) U/L Total Creatine Kinase 1349 H (55-170) U/L CK-MB (Mass) 75.4 H (0.0-3.38) ng/mL Troponin I 43.1000 H* (0.00-0.120) ng/mL Total Protein 7.7 (6.3-8.3) g/dL Albumin 4.9 (3.5-5.0) g/dL Globulin 2.8 (2.2-3.9) gm/dL Albumin/Globulin Ratio 1.7 (1.0-2.1) Urine Opiates Screen Positive H (NEGATIVE) Urine Methadone Screen Negative (NEGATIVE) Ur Barbiturates Screen Negative (NEGATIVE) Ur Phencyclidine Scrn Negative (NEGATIVE) Ur Amphetamines Screen Negative (NEGATIVE) U Benzodiazepines Scrn Positive (NEGATIVE) U Oth Cocaine Metabols Negative (NEGATIVE) U Cannabinoids Screen Positive H (NEGATIVE) Blood Type Antibody Screen 12/05/18 12/05/18 12/05/18 Range/Units 17:33 17:33 11:20 WBC 16.7 H (4.8-10.8) K/uL RBC 4.95 (4.40-5.90) Mil/uL Hgb 13.8 (12.0-18.0) g/dL Hct 42.7 (35.0-51.0) % MCV 86.3 (80.0-94.0) fL MCH 27.8 (27.0-31.0) pg MCHC 32.2 L (33.0-37.0) g/dL RDW 14.0 (11.5-14.5) % Plt Count 345 D (130-400) K/uL MPV 7.8 (7.2-11.7) fL Neut % (Auto) 79.5 H (50.0-75.0) % Lymph % (Auto) 13.0 L (20.0-40.0) % [place] % (Auto) 6.8 (0.0-10.0) % Eos % (Auto) 0.1 (0.0-4.0) % Baso % (Auto) 0.6 (0.0-2.0) % Neut # (Auto) 13.3 H (1.8-7.0) K/uL Lymph # (Auto) 2.2 (1.0-4.3) K/uL [place] # (Auto) 1.1 H (0.0-0.8) K/uL Eos # (Auto) 0.0 (0.0-0.7) K/uL Baso # (Auto) 0.1 (0.0-0.2) K/uL Neutrophils % (Manual) (50-75) % Lymphocytes % (Manual) (20-40) % Monocytes % (Manual) (0-10) % Platelet Estimate (NORMAL) RBC Morphology PT (9.7-12.2) SECONDS INR APTT (21-34) SECONDS Sodium 139 (132-148) mmol/L Potassium 4.4 (3.6-5.2) mmol/L Chloride 101 (98-107) mmol/L Carbon Dioxide 27 (22-30) mmol/L Anion Gap 16 (10-20) BUN 13 (9-20) mg/dL Creatinine 1.0 (0.8-1.5) mg/dL Est GFR ( Amer) > 60 Est GFR (Non-Af Amer) > 60 POC Glucose (mg/dL) (65-110) mg/dL Random Glucose 129 H (75-110) mg/dL Calcium 9.2 (8.6-10.4) mg/dl Phosphorus 4.0 (2.5-4.5) mg/dL Magnesium 1.9 (1.6-2.3) mg/dL Total Bilirubin 0.5 (0.2-1.3) mg/dL AST 268 H D (17-59) U/L ALT 58 (21-72) U/L Alkaline Phosphatase 99 (38-126) U/L Total Creatine Kinase (55-170) U/L CK-MB (Mass) (0.0-3.38) ng/mL Troponin I 70.0000 H* 0.0250 (0.00-0.120) ng/mL Total Protein 7.2 (6.3-8.3) g/dL Albumin 4.6 (3.5-5.0) g/dL Globulin 2.6 (2.2-3.9) gm/dL Albumin/Globulin Ratio 1.7 (1.0-2.1) Urine Opiates Screen (NEGATIVE) Urine Methadone Screen (NEGATIVE) Ur Barbiturates Screen (NEGATIVE) Ur Phencyclidine Scrn (NEGATIVE) Ur Amphetamines Screen (NEGATIVE) U Benzodiazepines Scrn (NEGATIVE) U Oth Cocaine Metabols (NEGATIVE) U Cannabinoids Screen (NEGATIVE) Blood Type Antibody Screen 12/05/18 12/05/18 12/05/18 Range/Units 11:19 11:19 11:19 WBC (4.8-10.8) K/uL RBC (4.40-5.90) Mil/uL Hgb (12.0-18.0) g/dL Hct (35.0-51.0) % MCV (80.0-94.0) fL MCH (27.0-31.0) pg MCHC (33.0-37.0) g/dL RDW (11.5-14.5) % Plt Count (130-400) K/uL MPV (7.2-11.7) fL Neut % (Auto) (50.0-75.0) % Lymph % (Auto) (20.0-40.0) % [place] % (Auto) (0.0-10.0) % Eos % (Auto) (0.0-4.0) % Baso % (Auto) (0.0-2.0) % Neut # (Auto) (1.8-7.0) K/uL Lymph # (Auto) (1.0-4.3) K/uL [place] # (Auto) (0.0-0.8) K/uL Eos # (Auto) (0.0-0.7) K/uL Baso # (Auto) (0.0-0.2) K/uL Neutrophils % (Manual) (50-75) % Lymphocytes % (Manual) (20-40) % Monocytes % (Manual) (0-10) % Platelet Estimate (NORMAL) RBC Morphology PT 11.1 (9.7-12.2) SECONDS INR 1.0 APTT 32 (21-34) SECONDS Sodium 139 (132-148) mmol/L Potassium 3.7 (3.6-5.2) mmol/L Chloride 100 (98-107) mmol/L Carbon Dioxide 26 (22-30) mmol/L Anion Gap 17 (10-20) BUN 18 (9-20) mg/dL Creatinine 1.3 (0.8-1.5) mg/dL Est GFR ( Amer) > 60 Est GFR (Non-Af Amer) 59 POC Glucose (mg/dL) (65-110) mg/dL Random Glucose 116 H (75-110) mg/dL Calcium 10.0 (8.6-10.4) mg/dl Phosphorus (2.5-4.5) mg/dL Magnesium (1.6-2.3) mg/dL Total Bilirubin 0.4 (0.2-1.3) mg/dL AST 49 (17-59) U/L ALT 33 (21-72) U/L Alkaline Phosphatase 128 H (38-126) U/L Total Creatine Kinase (55-170) U/L CK-MB (Mass) (0.0-3.38) ng/mL Troponin I (0.00-0.120) ng/mL Total Protein 8.1 (6.3-8.3) g/dL Albumin 5.2 H (3.5-5.0) g/dL Globulin 3.0 (2.2-3.9) gm/dL Albumin/Globulin Ratio 1.8 (1.0-2.1) Urine Opiates Screen (NEGATIVE) Urine Methadone Screen (NEGATIVE) Ur Barbiturates Screen (NEGATIVE) Ur Phencyclidine Scrn (NEGATIVE) Ur Amphetamines Screen (NEGATIVE) U Benzodiazepines Scrn (NEGATIVE) U Oth Cocaine Metabols (NEGATIVE) U Cannabinoids Screen (NEGATIVE) Blood Type O POSITIVE Antibody Screen Negative 12/05/18 12/05/18 Range/Units 11:19 11:16 WBC 12.7 H (4.8-10.8) K/uL RBC 5.28 (4.40-5.90) Mil/uL Hgb 15.3 (12.0-18.0) g/dL Hct 46.0 (35.0-51.0) % MCV 87.1 (80.0-94.0) fL MCH 28.9 (27.0-31.0) pg MCHC 33.2 (33.0-37.0) g/dL RDW 14.3 (11.5-14.5) % Plt Count 485 H (130-400) K/uL MPV 8.1 (7.2-11.7) fL Neut % (Auto) 55.3 (50.0-75.0) % Lymph % (Auto) 34.0 (20.0-40.0) % [place] % (Auto) 8.2 (0.0-10.0) % Eos % (Auto) 1.8 (0.0-4.0) % Baso % (Auto) 0.7 (0.0-2.0) % Neut # (Auto) 7.0 (1.8-7.0) K/uL Lymph # (Auto) 4.3 (1.0-4.3) K/uL [place] # (Auto) 1.0 H (0.0-0.8) K/uL Eos # (Auto) 0.2 (0.0-0.7) K/uL Baso # (Auto) 0.1 (0.0-0.2) K/uL Neutrophils % (Manual) (50-75) % Lymphocytes % (Manual) (20-40) % Monocytes % (Manual) (0-10) % Platelet Estimate (NORMAL) RBC Morphology PT (9.7-12.2) SECONDS INR APTT (21-34) SECONDS Sodium (132-148) mmol/L Potassium (3.6-5.2) mmol/L Chloride (98-107) mmol/L Carbon Dioxide (22-30) mmol/L Anion Gap (10-20) BUN (9-20) mg/dL Creatinine (0.8-1.5) mg/dL Est GFR ( Amer) Est GFR (Non-Af Amer) POC Glucose (mg/dL) 118 H (65-110) mg/dL Random Glucose (75-110) mg/dL Calcium (8.6-10.4) mg/dl Phosphorus (2.5-4.5) mg/dL Magnesium (1.6-2.3) mg/dL Total Bilirubin (0.2-1.3) mg/dL AST (17-59) U/L ALT (21-72) U/L Alkaline Phosphatase (38-126) U/L Total Creatine Kinase (55-170) U/L CK-MB (Mass) (0.0-3.38) ng/mL Troponin I (0.00-0.120) ng/mL Total Protein (6.3-8.3) g/dL Albumin (3.5-5.0) g/dL Globulin (2.2-3.9) gm/dL Albumin/Globulin Ratio (1.0-2.1) Urine Opiates Screen (NEGATIVE) Urine Methadone Screen (NEGATIVE) Ur Barbiturates Screen (NEGATIVE) Ur Phencyclidine Scrn (NEGATIVE) Ur Amphetamines Screen (NEGATIVE) U Benzodiazepines Scrn (NEGATIVE) U Oth Cocaine Metabols (NEGATIVE) U Cannabinoids Screen (NEGATIVE) Blood Type Antibody Screen Laboratory Results - last 24 hr 12/05/18 12/05/18 12/05/18 11:16 11:19 11:19 WBC 12.7 H RBC 5.28 Hgb 15.3 Hct 46.0 MCV 87.1 MCH 28.9 MCHC 33.2 RDW 14.3 Plt Count 485 H MPV 8.1 Neut % (Auto) 55.3 Lymph % (Auto) 34.0 [place] % (Auto) 8.2 Eos % (Auto) 1.8 Baso % (Auto) 0.7 Neut # (Auto) 7.0 Lymph # (Auto) 4.3 [place] # (Auto) 1.0 H Eos # (Auto) 0.2 Baso # (Auto) 0.1 Neutrophils % (Manual) Lymphocytes % (Manual) Monocytes % (Manual) Platelet Estimate RBC Morphology PT 11.1 INR 1.0 APTT 32 Sodium Potassium Chloride Carbon Dioxide Anion Gap BUN Creatinine Est GFR ( Amer) Est GFR (Non-Af Amer) POC Glucose (mg/dL) 118 H Random Glucose Calcium Phosphorus Magnesium Total Bilirubin AST ALT Alkaline Phosphatase Total Creatine Kinase CK-MB (Mass) Troponin I Total Protein Albumin Globulin Albumin/Globulin Ratio Urine Opiates Screen Urine Methadone Screen Ur Barbiturates Screen Ur Phencyclidine Scrn Ur Amphetamines Screen U Benzodiazepines Scrn U Oth Cocaine Metabols U Cannabinoids Screen Blood Type Antibody Screen 12/05/18 12/05/18 12/05/18 11:19 11:19 11:20 WBC RBC Hgb Hct MCV MCH MCHC RDW Plt Count MPV Neut % (Auto) Lymph % (Auto) [place] % (Auto) Eos % (Auto) Baso % (Auto) Neut # (Auto) Lymph # (Auto) [place] # (Auto) Eos # (Auto) Baso # (Auto) Neutrophils % (Manual) Lymphocytes % (Manual) Monocytes % (Manual) Platelet Estimate RBC Morphology PT INR APTT Sodium 139 Potassium 3.7 Chloride 100 Carbon Dioxide 26 Anion Gap 17 BUN 18 Creatinine 1.3 Est GFR ( Amer) > 60 Est GFR (Non-Af Amer) 59 POC Glucose (mg/dL) Random Glucose 116 H Calcium 10.0 Phosphorus Magnesium Total Bilirubin 0.4 AST 49 ALT 33 Alkaline Phosphatase 128 H Total Creatine Kinase CK-MB (Mass) Troponin I 0.0250 Total Protein 8.1 Albumin 5.2 H Globulin 3.0 Albumin/Globulin Ratio 1.8 Urine Opiates Screen Urine Methadone Screen Ur Barbiturates Screen Ur Phencyclidine Scrn Ur Amphetamines Screen U Benzodiazepines Scrn U Oth Cocaine Metabols U Cannabinoids Screen Blood Type O POSITIVE Antibody Screen Negative 12/05/18 12/05/18 12/05/18 17:33 17:33 20:48 WBC 16.7 H RBC 4.95 Hgb 13.8 Hct 42.7 MCV 86.3 MCH 27.8 MCHC 32.2 L RDW 14.0 Plt Count 345 D MPV 7.8 Neut % (Auto) 79.5 H Lymph % (Auto) 13.0 L [place] % (Auto) 6.8 Eos % (Auto) 0.1 Baso % (Auto) 0.6 Neut # (Auto) 13.3 H Lymph # (Auto) 2.2 [place] # (Auto) 1.1 H Eos # (Auto) 0.0 Baso # (Auto) 0.1 Neutrophils % (Manual) Lymphocytes % (Manual) Monocytes % (Manual) Platelet Estimate RBC Morphology PT INR APTT Sodium 139 139 Potassium 4.4 4.1 Chloride 101 102 Carbon Dioxide 27 25 Anion Gap 16 17 BUN 13 13 Creatinine 1.0 0.9 Est GFR ( Amer) > 60 > 60 Est GFR (Non-Af Amer) > 60 > 60 POC Glucose (mg/dL) Random Glucose 129 H 147 H Calcium 9.2 9.4 Phosphorus 4.0 Magnesium 1.9 Total Bilirubin 0.5 0.8 AST 268 H D 313 H ALT 58 60 Alkaline Phosphatase 99 98 Total Creatine Kinase CK-MB (Mass) Troponin I 70.0000 H* Total Protein 7.2 7.7 Albumin 4.6 4.9 Globulin 2.6 2.8 Albumin/Globulin Ratio 1.7 1.7 Urine Opiates Screen Urine Methadone Screen Ur Barbiturates Screen Ur Phencyclidine Scrn Ur Amphetamines Screen U Benzodiazepines Scrn U Oth Cocaine Metabols U Cannabinoids Screen Blood Type Antibody Screen 12/05/18 12/06/18 12/06/18 22:13 00:57 06:19 WBC 17.2 H RBC 4.99 Hgb 14.2 Hct 43.3 MCV 86.8 MCH 28.4 MCHC 32.7 L RDW 14.3 Plt Count 392 MPV 8.6 Neut % (Auto) 90.9 H Lymph % (Auto) 3.9 L [place] % (Auto) 5.0 Eos % (Auto) 0.0 Baso % (Auto) 0.2 Neut # (Auto) 15.6 H Lymph # (Auto) 0.7 L [place] # (Auto) 0.9 H Eos # (Auto) 0.0 Baso # (Auto) 0.0 Neutrophils % (Manual) 87 H Lymphocytes % (Manual) 4 L Monocytes % (Manual) 9 Platelet Estimate Normal RBC Morphology Normal PT INR APTT Sodium Potassium Chloride Carbon Dioxide Anion Gap BUN Creatinine Est GFR ( Amer) Est GFR (Non-Af Amer) POC Glucose (mg/dL) Random Glucose Calcium Phosphorus Magnesium Total Bilirubin AST ALT Alkaline Phosphatase Total Creatine Kinase 1349 H CK-MB (Mass) 75.4 H Troponin I 43.1000 H* Total Protein Albumin Globulin Albumin/Globulin Ratio Urine Opiates Screen Positive H Urine Methadone Screen Negative Ur Barbiturates Screen Negative Ur Phencyclidine Scrn Negative Ur Amphetamines Screen Negative U Benzodiazepines Scrn Positive U Oth Cocaine Metabols Negative U Cannabinoids Screen Positive H Blood Type Antibody Screen 12/06/18 12/06/18 06:19 08:35 WBC RBC Hgb Hct MCV MCH MCHC RDW Plt Count MPV Neut % (Auto) Lymph % (Auto) [place] % (Auto) Eos % (Auto) Baso % (Auto) Neut # (Auto) Lymph # (Auto) [place] # (Auto) Eos # (Auto) Baso # (Auto) Neutrophils % (Manual) Lymphocytes % (Manual) Monocytes % (Manual) Platelet Estimate RBC Morphology PT INR APTT Sodium 136 Potassium 3.8 Chloride 99 Carbon Dioxide 26 Anion Gap 15 BUN 12 Creatinine 0.8 Est GFR ( Amer) > 60 Est GFR (Non-Af Amer) > 60 POC Glucose (mg/dL) Random Glucose 156 H Calcium 9.1 Phosphorus 2.4 L Magnesium 1.9 Total Bilirubin 0.5 AST 241 H D ALT 51 Alkaline Phosphatase 80 Total Creatine Kinase 953 H CK-MB (Mass) 46.9 H Troponin I 29.7000 H* Total Protein 7.2 Albumin 4.6 Globulin 2.6 Albumin/Globulin Ratio 1.8 Urine Opiates Screen Urine Methadone Screen Ur Barbiturates Screen Ur Phencyclidine Scrn Ur Amphetamines Screen U Benzodiazepines Scrn U Oth Cocaine Metabols U Cannabinoids Screen Blood Type Antibody Screen Radiology Impressions: Radiology Impressions Chest X-Ray 03/13/19 11:08 IMPRESSION: Tiny bilateral nodular opacities of uncertain significance. Recommend further evaluation CT of the chest. EKG/Cardiology Studies: Cardiology / EKG Studies 12/05/18 11:08 ELECTROCARDIOGRAM Stat Comment: Mode Of Transportation: BED Reason For Exam: chest pain 12/05/18 20:37 ELECTROCARDIOGRAM Stat Comment: Mode Of Transportation: PORTABLE Reason For Exam: post stent Fingerstick Blood Sugar Results: 118 Review of Systems - Constitutional Constitutional: absent: Fever, Chills, Sweats, Weakness, Malaise - EENT Eyes: absent: Change in Vision - Cardiovascular Cardiovascular: absent: Chest Pain, Dyspnea on Exertion, Pain Radiating to Arm/Neck/Jaw, Palpitations, Pedal Edema - Respiratory Respiratory: absent: Cough, Dyspnea on Exertion, Wheezing - Gastrointestinal Gastrointestinal: absent: Abdominal Pain, Constipation, Diarrhea, Nausea, Vomiting Critical Care Progress Note - Nutrition Nutrition: Nutrition Category Date Time Status Heart Healthy Diet [DIET] Diets 12/05/18 Dinner Active Assessment/Plan - Assessment and Plan (Free Text) Assessment: This is a 48 y o male with PMhx CAD with hx 5 prior stents placed (2012, 2013, most recent stent placed 1 wk prior to this current admission at [facility] in [facility] by [employer] Dr. 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 Reason for ICU consult was for monitoring post-cath procedure. Pt stable for downgrade from ICU to telemetry floor at this time. Plan: Neuro: -AAOx3, no gross deficits on exam -Will cont to monitor Cardio: -S/p Code Heart -EKG: ST depressions in III and aVF and ST elevations in I and aVL -S/p Cardiac catheterization by Dr. Guzman, showed partial coronary dissection of RCA which was present prior as confirmed by Dr. Pichardo; diagonal artery was occluded as recent stent was placed and T stent was placed -Cardiology consulted, Dr. Guzman, recs appreciated -S/p heparin drip -C/w Briilinta -Started beta-elvis, statin therapy, ASA -Pt had episode of v-tach and associated palpitations in unit for several seconds which resolved on own without intervention on 12/05/18, stat EKG done demonstrated no acute changes, trop elevated to 70 from admission, cont to trend ROMIs -Amiodarone drip d/c'd, as per Dr. Guzman pt was started on Amiodarone 200 mg PO daily Pulm: -CXR demonstrated b/l nodular opacities of unknown significance, recommend CT chest -Saturating well on NC, cont to monitor GI: -HHD -Protonix -No acute issues at this time, cont to monitor -IVF d/c'd Heme: -H/H 14.2/43.3, stable, cont to monitor -Leukocytosis trending up, may be reactive 2/2 STEMI, cont to trend -Afebrile PPX: -Heparin, Protonix Pt seen, examined with, and plan discussed with Dr. Romero, attending physician. Mainor Grullon DO PGY-1, [employer] Pager #[phone]
--- NOTE | 2018-12-06 10:36 | CARD ---
APPROVED REPORT Date of service: 12/05/2018 EKG Measurement Heart [id number] <Conclusion> Normal sinus rhythm Low voltage QRS Borderline ECG
[2018-12-06] MEDS ORDERED: Omega-3-Acid Ethyl Esters 1 GM Cap PO SCH (12:00)
--- NOTE | 2018-12-06 15:36 | CARD ---
APPROVED REPORT Date of service: 12/06/2018 EXAM: Two-dimensional and M-mode echocardiogram with Doppler and color Doppler. Other Information Quality : GoodRhythm : INDICATION LV Function:SystolicDiastolic Non STEMI 2D DIMENSIONS IVSd0.8 (0.7-1.1cm)LVDd5.1 (3.9-5.9cm) PWd0.9 (0.7-1.1cm)LA Hrxjiz05 (18-58mL) LVDs3.9 (2.5-4.0cm)FS (%) 23.0 % LVEF (%)46.0 (>50%)LVEF (Hernandez's)45 % IVC0.00 cm M-Mode DIMENSIONS RVDd1.63 (2.1-3.2cm)Left Atrium (MM)3.21 (2.5-4.0cm) IVSd0.45 (0.7-1.1cm)Aortic Root2.89 (2.2-3.7cm) LVDd5.38 (4.0-5.6cm)Aortic Cusp Exc.1.87 (1.5-2.0cm) PWd0.73 (0.7-1.1cm)FS (%) 30 % LVDs3.75 (2.0-3.8cm)TAPSE23.43 cm LVEF (%)45 (>50%) Aortic Valve AI P 1/2 [id number] Mitral Valve MV E Djbbsusp93.7cm/sMV A Dfqsohtq33.7cm/sE/A ratio1.4 RJLL193.45 cm/s TDI Lateral E' Peak V7.00cm/sMedial E' Peak V7.77cm/sE/Lateral E'12.2 E/Medial E'11.0 Tricuspid Valve TR Peak Sttgmyte854ya/sTR Peak Gr.32rjMxTECI70ftBd LEFT VENTRICLE The left ventricle is normal size. There is normal left ventricular wall thickness. Left ventricle is mildly impaired. The Ejection Fraction is 45-50%. There is akinesis in the apex wall. There is hypokinesis in the mid-anteroseptal wall. Transmitral Doppler flow pattern is Grade II-pseudonormal filling dynamics. There is no ventricular septal defect visualized. RIGHT VENTRICLE The right ventricle is normal size. The right ventricular systolic function is normal. ATRIA The left atrium is mildly dilated. The right atrium size is normal. AORTIC VALVE The aortic valve is mildly sclerotic. The aortic valve is tri-cuspid. No aortic regurgitation is present. There is no aortic valvular stenosis. MITRAL VALVE The mitral valve is normal in structure. There is no evidence of mitral valve prolapse. Mitral regurgitation is mild. ERO 0.1 cm2 TRICUSPID VALVE The tricuspid valve is normal in structure. There is mild tricuspid regurgitation. Right ventricular systolic pressure is estimated at 40-50 mmHg. There is moderate pulmonary hypertension. PULMONIC VALVE The pulmonic valve is not well visualized. There is no pulmonic valvular regurgitation. GREAT VESSELS The aortic root is normal in size. The ascending aorta is normal in size. The IVC is normal in size and collapses >50% with inspiration. PERICARDIAL EFFUSION There is no pericardial effusion. <Conclusion> Left ventricle is mildly impaired. The Ejection Fraction is 45-50%. Transmitral Doppler flow pattern is Grade II-pseudonormal filling dynamics. Mitral regurgitation is mild. ERO 0.1 cm2 There is moderate pulmonary hypertension.
[2018-12-06] MEDS: Omega-3-Acid Ethyl Esters 1 GM Cap PO SCH (17:51)
--- NOTE | 2018-12-07 00:08 | CARD ---
APPROVED REPORT Date of service: 12/05/2018 EKG Measurement Heart [id number] SD 146P3 [id number] <Conclusion> Normal sinus rhythm Septal infarct, age undetermined Abnormal ECG
[2018-12-07 06:22] LABS: BASO # 0.1 K/uL (0.0-0.2); BASO % 0.5 % (0.0-2.0); EOS # 0.2 K/uL (0.0-0.7); EOS % 1.8 % (0.0-4.0); LYMPH # 1.8 K/uL (1.0-4.3); LYMPH % 15.3 % (20.0-40.0); MEAN CELL VOLUME 86.2 fL (80.0-94.0); MEAN CORPUSCULAR HEMOGLOBIN 27.9 pg (27.0-31.0); MEAN CORPUSCULAR HGB CONC 32.4 g/dL (33.0-37.0); MEAN PLATELET VOLUME 8.4 fL (7.2-11.7); MONO # 1.1 K/uL (0.0-0.8); MONO % 9.2 % (0.0-10.0); NEUT # 8.8 K/uL (1.8-7.0); NEUT % 73.2 % (50.0-75.0); NRBC % 0.1 % (0.0-2.0); RBC 5.02 Mil/uL (4.40-5.90); RED CELL DISTRIBUTION WIDTH 14.5 % (11.5-14.5)
[2018-12-07 06:47] LABS: ALB/GLOB RATIO 1.7 (1.0-2.1); ALBUMIN 4.4 g/dL (3.5-5.0); ALT/SGPT 49 U/L (21-72); AST/SGOT 114 U/L (17-59); BLOOD UREA NITROGEN 15 mg/dL (9-20); CALCIUM 8.6 mg/dl (8.6-10.4); GFR NON-AFRICAN AMERICAN > 60
[2018-12-07] MEDS: Pantoprazole 40 mg EC Tab PO SCH (09:10)
[2018-12-07] MEDS: Omega-3-Acid Ethyl Esters 1 GM Cap PO SCH ×2 (09:11→18:35)
--- NOTE | 2018-12-07 14:41 | CP.PCM.PN ---
Subjective - Date & Time of Evaluation Date of Evaluation: 12/07/18 Time of Evaluation: 14:37 - Subjective Subjective: Ailyn Verde, PGY-1, Cardiology Progress Note for Dr. Guzman Patient was seen and evaluated at bedside. Patient had no acute overnight events. Patient reports nausea, chest pain and shortness of breath have now resolved. Objective - Vital Signs/Intake and Output Vital Signs (last 24 hours): Temp Pulse Resp BP Pulse Ox 98.2 F 78 22 116/80 95 12/07/18 12:00 12/07/18 11:37 12/07/18 11:37 12/07/18 11:37 12/07/18 11:37 Intake and Output: 12/07/18 12/07/18 06:59 18:59 Intake Total 1580 300 Output Total 1600 600 Balance -20 -300 - Medications Medications: Current Medications Amiodarone HCl (Cordarone) 200 mg PO DAILY [facility] Last Admin: 12/07/18 09:10 Dose: 200 mg Aspirin (Aspirin Chewable) 81 mg PO DAILY [facility] Last Admin: 12/07/18 09:10 Dose: 81 mg Ezetimibe (Zetia) 10 mg PO DAILY [facility] Last Admin: 12/07/18 09:11 Dose: 10 mg Heparin Sodium (Porcine) (Heparin) 5,000 units SC Q8 [facility] Last Admin: 12/07/18 13:38 Dose: 5,000 units Losartan Potassium (Cozaar) 25 mg PO DAILY [facility] Metoprolol Tartrate (Lopressor) 50 mg PO BID [facility] Last Admin: 12/07/18 09:10 Dose: 50 mg Xyefa-[id number] Ethyl Esters (Lovaza) 2 gm PO BID [facility] Last Admin: 12/07/18 09:11 Dose: 2 gm Ondansetron HCl (Zofran Inj) 4 mg IVP Q6H PRN PRN Reason: Nausea/Vomiting Pantoprazole Sodium (Protonix Ec Tab) 40 mg PO DAILY [facility] Last Admin: 12/07/18 09:10 Dose: 40 mg Rosuvastatin Calcium (Crestor) 20 mg PO HS [facility] Last Admin: 12/06/18 22:02 Dose: 20 mg Ticagrelor (Brilinta) 90 mg PO BID [facility] Last Admin: 12/07/18 09:10 Dose: 90 mg - Labs Labs: 12/07/18 06:10 12/07/18 06:10 PT 11.1 SECONDS (9.7-12.2) 12/05/18 11:19 INR 1.0 12/05/18 11:19 APTT 32 SECONDS (21-34) 12/05/18 11:19 - Constitutional Appears: Well, Non-toxic, No Acute Distress - Head Exam Head Exam: ATRAUMATIC, NORMAL INSPECTION, NORMOCEPHALIC - Eye Exam Eye Exam: EOMI, PERRL - ENT Exam ENT Exam: Mucous Membranes Moist - Respiratory Exam Respiratory Exam: Clear to Ausculation Bilateral, NORMAL BREATHING PATTERN - Cardiovascular Exam Cardiovascular Exam: REGULAR RHYTHM, RRR, +S1, +S2 - GI/Abdominal Exam GI & Abdominal Exam: Soft, Normal Bowel Sounds. absent: Tenderness - Extremities Exam Extremities Exam: Full ROM - Back Exam Back Exam: NORMAL INSPECTION - Neurological Exam Neurological Exam: Alert, Awake, CN II-XII Intact, Oriented x3 - Psychiatric Exam Psychiatric exam: Normal Affect, Normal Mood - Skin Skin Exam: Dry, Intact Assessment and Plan - Assessment and Plan (Free Text) Assessment: CAD Family history of ID Plan: CAD Family history of ID Cardiac catheterization showed partial coronary dissection of RCA which was present prior as confirmed by Dr. Pichardo; diagonal artery was occluded as recent stent was placed and T stent was placed Echocardiogram: LVEF of 46%, grade II pseudonormal filling, moderate pulmonary hypertension BNP: 3720 Troponin: 70, 43,29 Blood pressure improved to 120s/80s today so will start losartan Medications: aspirin brilinta rosuvastatin lopressor zetia omega 3 fatty acids losartan amiodarone
[2018-12-08 08:33] LABS: BASO # 0.1 K/uL (0.0-0.2); BASO % 0.9 % (0.0-2.0); EOS # 0.3 K/uL (0.0-0.7); EOS % 2.5 % (0.0-4.0); HEMOGLOBIN 14.9 g/dL (12.0-18.0); LYMPH # 1.9 K/uL (1.0-4.3); LYMPH % 16.7 % (20.0-40.0); MEAN CORPUSCULAR HEMOGLOBIN 28.9 pg (27.0-31.0); MEAN CORPUSCULAR HGB CONC 33.2 g/dL (33.0-37.0); MEAN PLATELET VOLUME 8.2 fL (7.2-11.7); MONO # 1.1 K/uL (0.0-0.8); MONO % 9.7 % (0.0-10.0); NEUT # 8.1 K/uL (1.8-7.0); NEUT % 70.2 % (50.0-75.0); RBC 5.17 Mil/uL (4.40-5.90); RED CELL DISTRIBUTION WIDTH 14.6 % (11.5-14.5); WHITE BLOOD COUNT 11.5 K/uL (4.8-10.8)
[2018-12-08 08:52] LABS: ALB/GLOB RATIO 1.6 (1.0-2.1); ALBUMIN 4.4 g/dL (3.5-5.0); ALT/SGPT 47 U/L (21-72); AST/SGOT 76 U/L (17-59); BLOOD UREA NITROGEN 20 mg/dL (9-20); CALCIUM 9.4 mg/dl (8.6-10.4); GFR NON-AFRICAN AMERICAN > 60
[2018-12-08] MEDS: Omega-3-Acid Ethyl Esters 1 GM Cap PO SCH ×2 (10:57→17:12)
[2018-12-08] MEDS: Pantoprazole 40 mg EC Tab PO SCH (10:57)
[2018-12-09 09:17] LABS: BASO # 0.1 K/uL (0.0-0.2); BASO % 0.5 % (0.0-2.0); EOS # 0.4 K/uL (0.0-0.7); EOS % 3.1 % (0.0-4.0); HEMOGLOBIN 15.4 g/dL (12.0-18.0); LYMPH # 2.5 K/uL (1.0-4.3); LYMPH % 21.5 % (20.0-40.0); MEAN CELL VOLUME 86.2 fL (80.0-94.0); MEAN CORPUSCULAR HGB CONC 33.7 g/dL (33.0-37.0); MEAN PLATELET VOLUME 8.4 fL (7.2-11.7); NEUT # 7.6 K/uL (1.8-7.0); NEUT % 65.9 % (50.0-75.0); NRBC % 0.1 % (0.0-2.0); RBC 5.29 Mil/uL (4.40-5.90); RED CELL DISTRIBUTION WIDTH 14.2 % (11.5-14.5); WHITE BLOOD COUNT 11.5 K/uL (4.8-10.8)
[2018-12-09 09:37] LABS: ALB/GLOB RATIO 1.6 (1.0-2.1); ALBUMIN 4.5 g/dL (3.5-5.0); ALT/SGPT 59 U/L (21-72); AST/SGOT 55 U/L (17-59); BLOOD UREA NITROGEN 19 mg/dL (9-20); CALCIUM 9.7 mg/dl (8.6-10.4); GFR NON-AFRICAN AMERICAN > 60
[2018-12-09] MEDS: Pantoprazole 40 mg EC Tab PO SCH (09:57)
[2018-12-09] MEDS: Omega-3-Acid Ethyl Esters 1 GM Cap PO SCH ×2 (09:57→17:47)
[2018-12-10 07:36] LABS: BASO # 0.1 K/uL (0.0-0.2); BASO % 0.7 % (0.0-2.0); EOS # 0.3 K/uL (0.0-0.7); EOS % 3.4 % (0.0-4.0); HEMOGLOBIN 15.9 g/dL (12.0-18.0); LYMPH % 19.7 % (20.0-40.0); MEAN CELL VOLUME 86.2 fL (80.0-94.0); MEAN CORPUSCULAR HEMOGLOBIN 29.6 pg (27.0-31.0); MEAN CORPUSCULAR HGB CONC 34.4 g/dL (33.0-37.0); MEAN PLATELET VOLUME 8.6 fL (7.2-11.7); MONO # 0.8 K/uL (0.0-0.8); MONO % 7.9 % (0.0-10.0); NEUT % 68.3 % (50.0-75.0); NRBC % 0.1 % (0.0-2.0); RBC 5.38 Mil/uL (4.40-5.90); RED CELL DISTRIBUTION WIDTH 14.1 % (11.5-14.5); WHITE BLOOD COUNT 10.3 K/uL (4.8-10.8)
[2018-12-10 08:05] LABS: ALB/GLOB RATIO 1.6 (1.0-2.1); ALBUMIN 4.5 g/dL (3.5-5.0); ALT/SGPT 49 U/L (21-72); AST/SGOT 46 U/L (17-59); BLOOD UREA NITROGEN 19 mg/dL (9-20); CALCIUM 9.6 mg/dl (8.6-10.4); GFR NON-AFRICAN AMERICAN > 60
[2018-12-10] MEDS: Pantoprazole 40 mg EC Tab PO SCH (10:54)
[2018-12-10] MEDS: Omega-3-Acid Ethyl Esters 1 GM Cap PO SCH ×2 (10:55→18:21)
--- NOTE | 2018-12-10 10:59 | CP.PCM.PN ---
Subjective - Date & Time of Evaluation Date of Evaluation: 12/10/18 Time of Evaluation: 10:57 - Subjective Subjective: feeling fine stable over the weekend Objective - Vital Signs/Intake and Output Vital Signs (last 24 hours): Temp Pulse Resp BP Pulse Ox 98.2 F 69 20 110/70 96 12/10/18 07:00 12/10/18 07:00 12/10/18 07:00 12/10/18 07:00 12/10/18 07:00 - Medications Medications: Current Medications Amiodarone HCl (Cordarone) 200 mg PO DAILY [facility] Last Admin: 12/10/18 10:54 Dose: 200 mg Aspirin (Aspirin Chewable) 81 mg PO DAILY [facility] Last Admin: 12/10/18 10:55 Dose: 81 mg Ezetimibe (Zetia) 10 mg PO DAILY [facility] Last Admin: 12/10/18 10:55 Dose: 10 mg Losartan Potassium (Cozaar) 25 mg PO DAILY [facility] Last Admin: 12/10/18 10:54 Dose: 25 mg Metoprolol Tartrate (Lopressor) 50 mg PO BID [facility] Last Admin: 12/10/18 10:55 Dose: 50 mg Ynldb-[id number] Ethyl Esters (Lovaza) 2 gm PO BID [facility] Last Admin: 12/10/18 10:55 Dose: 2 gm Ondansetron HCl (Zofran Inj) 4 mg IVP Q6H PRN PRN Reason: Nausea/Vomiting Pantoprazole Sodium (Protonix Ec Tab) 40 mg PO DAILY [facility] Last Admin: 12/10/18 10:54 Dose: 40 mg Rosuvastatin Calcium (Crestor) 20 mg PO HS [facility] Last Admin: 12/09/18 21:47 Dose: 20 mg Ticagrelor (Brilinta) 90 mg PO BID [facility] Last Admin: 12/10/18 10:55 Dose: 90 mg - Labs Labs: 12/10/18 07:26 12/10/18 07:26 PT 11.1 SECONDS (9.7-12.2) 12/05/18 11:19 INR 1.0 12/05/18 11:19 APTT 32 SECONDS (21-34) 12/05/18 11:19 - Constitutional Appears: Well - Head Exam Head Exam: ATRAUMATIC, NORMAL INSPECTION, NORMOCEPHALIC - Eye Exam Eye Exam: EOMI, Normal appearance, PERRL Pupil Exam: NORMAL ACCOMODATION, PERRL - ENT Exam ENT Exam: Mucous Membranes Moist, Normal Exam - Neck Exam Neck Exam: Full ROM, Normal Inspection. absent: Lymphadenopathy - Respiratory Exam Respiratory Exam: Clear to Ausculation Bilateral, NORMAL BREATHING PATTERN - Cardiovascular Exam Cardiovascular Exam: REGULAR RHYTHM, +S1, +S2. absent: Murmur - GI/Abdominal Exam GI & Abdominal Exam: Soft, Normal Bowel Sounds. absent: Tenderness - Rectal Exam Rectal Exam: NORMAL INSPECTION - Exam Exam: Circumcision, NORMAL INSPECTION External exam: NORMAL EXTERNAL EXAM Speculum exam: NORMAL SPECULUM EXAM Bimanual exam: NORMAL BIMANUAL EXAM - Extremities Exam Extremities Exam: Full ROM, Normal Capillary Refill, Normal Inspection. absent: Joint Swelling, Pedal Edema - Back Exam Back Exam: NORMAL INSPECTION - Neurological Exam Neurological Exam: Alert, Awake, CN II-XII Intact, Normal Gait, Oriented x3 - Psychiatric Exam Psychiatric exam: Normal Affect, Normal Mood - Skin Skin Exam: Dry, Intact, Normal Color, Warm Assessment and Plan (1) STEMI (ST elevation myocardial infarction) Assessment & Plan: s/p bifurcating T-stent of LAD/diagonal cont dapt cont bb statins arb Status: Acute (2) CAD (coronary artery disease) Status: Acute (3) CHF (congestive heart failure) Assessment & Plan: cont amiodarone cont metoprolol , losartan Status: Acute (4) Pulmonary HTN Status: Acute
[2018-12-10 17:14] VITALS: BP 94/59; RESP 18; TEMP 97.7; O2SAT 97
--- NOTE | 2018-12-10 19:20 | CP.PCM.DIS ---
Provider - Provider Date of Admission: 12/05/18 11:36 Attending physician: Kenneth Guzman MD Consults: 12/05/18 15:15 Inpatient MANAGER MONITORING Core Measures Referral Routine Comment: Physician Instructions: Reason For Exam: AMI Time Spent in preparation of Discharge (in minutes): 60 Diagnosis - Discharge Diagnosis (1) CAD (coronary artery disease) Status: Acute (2) STEMI (ST elevation myocardial infarction) Status: Acute Hospital Course - Lab Results Lab Results: Micro Results 12/07/18 17:05 Naris MRSA Culture - Final MRSA NOT DETECTED 12/05/18 14:13 Nose MRSA Culture (Admit) - Final MRSA NOT DETECTED Most Recent Lab Values WBC 10.3 K/uL (4.8-10.8) 12/10/18 07:26 RBC 5.38 Mil/uL (4.40-5.90) 12/10/18 07:26 Hgb 15.9 g/dL (12.0-18.0) 12/10/18 07:26 Hct 46.3 % (35.0-51.0) 12/10/18 07:26 MCV 86.2 fL (80.0-94.0) 12/10/18 07:26 MCH 29.6 pg (27.0-31.0) 12/10/18 07:26 MCHC 34.4 g/dL (33.0-37.0) 12/10/18 07:26 RDW 14.1 % (11.5-14.5) 12/10/18 07:26 Plt Count 335 K/uL (130-400) 12/10/18 07:26 MPV 8.6 fL (7.2-11.7) 12/10/18 07:26 Neut % (Auto) 68.3 % (50.0-75.0) 12/10/18 07:26 Lymph % (Auto) 19.7 % (20.0-40.0) L 12/10/18 07:26 Pratt % (Auto) 7.9 % (0.0-10.0) 12/10/18 07:26 Eos % (Auto) 3.4 % (0.0-4.0) 12/10/18 07:26 Baso % (Auto) 0.7 % (0.0-2.0) 03/18/19 07:26 Neut # (Auto) 7.0 K/uL (1.8-7.0) 12/10/18 07:26 Lymph # (Auto) 2.0 K/uL (1.0-4.3) 12/10/18 07:26 Pratt # (Auto) 0.8 K/uL (0.0-0.8) 12/10/18 07:26 Eos # (Auto) 0.3 K/uL (0.0-0.7) 12/10/18 07:26 Baso # (Auto) 0.1 K/uL (0.0-0.2) 12/10/18 07:26 Neutrophils % (Manual) 87 % (50-75) H 12/06/18 06:19 Lymphocytes % (Manual) 4 % (20-40) L 12/06/18 06:19 Monocytes % (Manual) 9 % (0-10) 12/06/18 06:19 Platelet Estimate Normal (NORMAL) 12/06/18 06:19 RBC Morphology Normal 12/06/18 06:19 PT 11.1 SECONDS (9.7-12.2) 12/05/18 11:19 INR 1.0 12/05/18 11:19 APTT 32 SECONDS (21-34) 12/05/18 11:19 Sodium 138 mmol/L (132-148) 12/10/18 07:26 Potassium 4.4 mmol/L (3.6-5.2) 12/10/18 07:26 Chloride 100 mmol/L (98-107) 12/10/18 07:26 Carbon Dioxide 31 mmol/L (22-30) H 12/10/18 07:26 Anion Gap 12 (10-20) 12/10/18 07:26 BUN 19 mg/dL (9-20) 12/10/18 07:26 Creatinine 1.2 mg/dL (0.8-1.5) 12/10/18 07:26 Est GFR ( Amer) > 60 12/10/18 07:26 Est GFR (Non-Af Amer) > 60 12/10/18 07:26 POC Glucose (mg/dL) 118 mg/dL (65-110) H 12/05/18 11:16 Random Glucose 102 mg/dL (75-110) 12/10/18 07:26 Calcium 9.6 mg/dl (8.6-10.4) 12/10/18 07:26 Phosphorus 4.4 mg/dL (2.5-4.5) 12/10/18 07:26 Magnesium 2.2 mg/dL (1.6-2.3) 12/10/18 07:26 Total Bilirubin 0.6 mg/dL (0.2-1.3) 12/10/18 07:26 AST 46 U/L (17-59) 12/10/18 07:26 ALT 49 U/L (21-72) 12/10/18 07:26 Alkaline Phosphatase 84 U/L (38-126) 12/10/18 07:26 Total Creatine Kinase 953 U/L (55-170) H 12/06/18 08:35 CK-MB (Mass) 46.9 ng/mL (0.0-3.38) H 12/06/18 08:35 Troponin I 29.7000 ng/mL (0.00-0.120) H* 12/06/18 08:35 NT-Pro-B Natriuret Pep 3720 pg/mL (0-450) H 12/06/18 08:35 Total Protein 7.2 g/dL (6.3-8.3) 12/10/18 07:26 Albumin 4.5 g/dL (3.5-5.0) 12/10/18 07:26 Globulin 2.7 gm/dL (2.2-3.9) 12/10/18 07:26 Albumin/Globulin Ratio 1.6 (1.0-2.1) 12/10/18 07:26 Urine Opiates Screen Positive (NEGATIVE) H 12/05/18 22:13 Urine Methadone Screen Negative (NEGATIVE) 12/05/18 22:13 Ur Barbiturates Screen Negative (NEGATIVE) 12/05/18 22:13 Ur Phencyclidine Scrn Negative (NEGATIVE) 12/05/18 22:13 Ur Amphetamines Screen Negative (NEGATIVE) 12/05/18 22:13 U Benzodiazepines Scrn Positive (NEGATIVE) 12/05/18 22:13 U Oth Cocaine Metabols Negative (NEGATIVE) 12/05/18 22:13 U Cannabinoids Screen Positive (NEGATIVE) H 12/05/18 22:13 Blood Type O POSITIVE 12/05/18 11:19 Antibody Screen Negative 12/05/18 11:19 - Hospital Course Hospital Course: Ailyn Verde, PGY-1, Discharge Summary for Dr. Guzman 48 year old male with past medical history of 3 prior heart catheterizations week prior to presentation, 3 years ago, and 6 years ago presented with sharp chest pain which gradually increased after patient was shoveling dirt day of presentation for 5 minutes. Patient reported chest pain starting around 10:45 AM, shortness of breath and nausea was brought to the hospital by EMS. EKG was read at 11:02 and code heart was called on 12/05. Patient was found to have ST depressions in III and aVF and ST elevations in I and aVL and was subsequently taken to the engineering lab technician where cardiac catheterization was performed by Dr. Guzman. Cardiac catheterization showed showed partial coronary dissection of RCA which was present prior as confirmed by Dr. Pichardo; diagonal artery was occluded as recent stent was placed and T stent was placed on this catheterization. Echocardiogram post procedure showed LVEF of 46%, grade II pseudonormal filling, moderate pulmonary hypertension. Troponinx3 trended down from 70 to 43 to 29. Patient's symptoms resolved after the catheterization. Patient was given aspirin, brilinta, rosuvastatin, lopressor, zetia, omega 3 fatty acids, losartan, and amiodarone this admission. Patient was found to be stable and ready for discharge. Patient was told to follow up with PCP and Dr. Pichardo, Cardiology. Patient was told to take all medications as prescribed upon discharge. Patient was told to return to the emergency department if he had any new or concerning symptoms. - Date & Time of H&P Date of H&P: 12/05/18 Time of H&P: 16:44 Discharge Exam - Head Exam Head Exam: ATRAUMATIC, NORMAL INSPECTION, NORMOCEPHALIC - Eye Exam Eye Exam: EOMI, PERRL - Respiratory Exam Respiratory Exam: Clear to PA & Lateral, NORMAL BREATHING PATTERN - Cardiovascular Exam Cardiovascular Exam: REGULAR RHYTHM, RRR, +S1, +S2 - GI/Abdominal Exam GI & Abdominal Exam: Normal Bowel Sounds, Soft. absent: Tenderness - Extremities Exam Extremities exam: full ROM - Neurological Exam Neurological exam: Alert, CN II-XII Intact, Oriented x3 - Skin Skin Exam: Dry, Intact, Normal Color Discharge Plan - Discharge Medications Prescriptions: Ezetimibe [Zetia] 10 mg PO DAILY 30 Days #30 tab Losartan [Cozaar] 25 mg PO DAILY 30 Days #30 tab Metoprolol Tartrate [Lopressor] 50 mg PO BID 30 Days #30 tab [id number] Ethyl Esters 1 GM [Lovaza] 2 gm PO BID 30 Days #60 sgl Ticagrelor [Brilinta] 90 mg PO BID 30 Days #60 tab - Follow Up Plan Condition: STABLE Disposition: HOME/ ROUTINE Instructions: Heart Attack (DC), Chest Pain (DC), Coronary Heart Disease (DC), Pulmonary Hypertension, Adult (DC) Additional Instructions: Please follow up with PCP and Dr. Pichardo within 1 week post discharge. Please call PCP and Dr. Pichardo's office to make an appointment. Please take all medications as prescribed upon discharge Please return to the emergency department if you have any new or concerning symptoms. Referrals: Harry Pichardo [Other]
--- NOTE | 2018-12-11 00:23 | CARD ---
APPROVED REPORT Date of service: 12/05/2018 EXAM: LIMITED Two-dimensional and M-mode echocardiogram. INDICATION CODE HEART , R/O DISSECTION LEFT VENTRICLE The Left Ventricle is mildly dilated. There is borderline concentric left ventricular hypertrophy. The systolic function is mildly to moderately impaired. The Ejection Fraction is 45-50%. There is mild to moderate hypokinesis in the basal anteroseptal wall. GREAT VESSELS The aortic root is normal in size. The ascending aorta is normal in size. <Conclusion> There is mild to moderate hypokinesis in the basal anteroseptal wall. The ascending aorta is normal in size. The aortic root is normal in size. The systolic function is mildly to moderately impaired. The Ejection Fraction is 45-50%.
[2018-12-11 00:28] VITALS: PULSE 73
== END 2018-12-10 21:15 | disposition home or self-care (01) | DRG 853 ==
LOC: C.ER 11:03 → C.9E 11:36 → C.9I 13:37 → C.6T 12-07 16:32
PROVIDERS: ADMIT Internal Medicine Interventional Cardiology; ATTEND Internal Medicine Interventional Cardiology
PROC: 027135Z Dilation of Coronary Artery, Two Arteries with Two Drug-eluting Intraluminal Devices, Percutaneous Approach (ICD-10-PCS; principal; 2018-12-05)
PROC: 4A023N7 Measurement of Cardiac Sampling and Pressure, Left Heart, Percutaneous Approach (ICD-10-PCS; 2018-12-05)
PROC: B2111ZZ Fluoroscopy of Multiple Coronary Arteries using Low Osmolar Contrast (ICD-10-PCS; 2018-12-05)
PROC: B2151ZZ Fluoroscopy of Left Heart using Low Osmolar Contrast (ICD-10-PCS; 2018-12-05)
DX: I21.3 ST elevation (STEMI) myocardial infarction of unspecified site (principal); I11.0 Hypertensive heart disease with heart failure; I50.9 Heart failure, unspecified; T82.855A Stenosis of coronary artery stent, initial encounter; I47.2 Ventricular tachycardia; E78.00 Pure hypercholesterolemia, unspecified; I25.10 Atherosclerotic heart disease of native coronary artery without angina pectoris; I27.20 Pulmonary hypertension, unspecified; Y71.2 Prosthetic and other implants, materials and accessory cardiovascular devices associated with adverse incidents